=== PATIENT | female | born 1995 | race Caucasian/White ===

== ENCOUNTER → 2018-07-05 07:52 | Outpatient (CLI) | payer SELFPAY ==
[2018-07-05 14:06] LABS: Basophils % 0.7 % (0.1-2.0); Eosinophils # 0.1 K/mm3 (0.0-0.4); Eosinophils % 1.3 % (0.1-12.0); Hematocrit 47.3 % (37.0-47.0); Hemoglobin 16.1 g/dL (12.2-16.2); Lymphocytes % 35.2 % (10-50); Mean Corpuscular HGB Conc 34.1 g/dL (31.8-35.4); Mean Platelet Volume 7.8 fl (7.4-10.4); Monocytes # 0.6 K/mm3 (0.1-1.0); Monocytes % 10.6 % (1.7-9.3); Neutrophils # 2.9 K/mm3 (1.8-7.8); Neutrophils % 52.2 % (37.0-80.0); Platelet Count 238 K/mm3 (142-424); Red Cell Distribution Width 12.3 % (11.5-17.5); White Blood Count 5.6 K/mm3 (4.8-10.8)
[2018-07-05 15:58] LABS: Alanine Aminotransferase 25 U/L (12-78); Albumin Level 4.2 gm/dL (3.4-5.0); Albumin/Globulin Ratio 1.3 (1.1-1.8); Alkaline Phosphatase 77 U/L (46-116); Anion Gap 14.1 mEq/L (5-15); Aspartate Amino Transferase 13 U/L (15-37); Bilirubin,Total 0.5 mg/dL (0.2-1.0); Blood Urea Nitrogen 15 mg/dL (7-18); Calcium 9.2 mg/dL (8.5-10.1); Carbon Dioxide 29 mmol/L (21.0-32.0); Chloride 103 mmol/L (98-107); Creatinine,Serum 0.71 mg/dL (0.55-1.02); Estimated Glomerular Filt Rate 102 ml/min (>60); GFR (African American) 123 ML/MIN (>60); Globulin 3.3 gm/dl (1.3-3.2); Glucose 72 mg/dL (74-106); Iron 38 ug/dl (28-170); Potassium 4.1 mmoL/L (3.5-5.1); Sodium 142 mmol/L (136-145); T4 (Thyroxine) 8.8 ug/dl (4.7-13.3); Thyroid Stimulating Hormone 3.23 uIU/ml (0.358-3.740); Total Protein,Serum 7.5 gm/dL (6.4-8.2)
== END ==
PROVIDERS: PCP Nurse Practitioner Family; Visit Provider Nurse Practitioner Family
DX: R53.83 Other fatigue (principal); R53.81 Other malaise; E16.2 Hypoglycemia, unspecified
CPT/HCPCS: 36415; 80053; 83540; 84436; 84443; 85025

== ENCOUNTER → 2018-08-07 11:41 | Outpatient (CLI) | payer SELFPAY ==
[2018-08-07 14:46] LABS: Creatine Kinase 72 U/L (26-192); Creatine Kinase MB 1.9 ng/ml (0.0-3.6)
[2018-08-08 15:13] LABS: CK-MB 0 % (0-3); CK-MM 100 % (97-100); Creatine Kinase,Total,Serum 75 U/L (24-173); Macro Type 1 0 % (Not Observed); Macro Type 2 0 % (Not Observed)
[2018-08-09 18:29] LABS: CK-BB 0 % (0)
== END ==
PROVIDERS: PCP Nurse Practitioner Family; Visit Provider Nurse Practitioner Family
DX: M62.81 Muscle weakness (generalized) (principal)
CPT/HCPCS: 36415; 82550; 82552; 82553

== ENCOUNTER → 2022-02-15 14:56 | Outpatient (CLI) | payer SELFPAY ==
--- NOTE | 2022-02-15 15:00 | US_ITS ---
FINAL REPORT CLINICAL HISTORY: r/o left parotid growth FINDINGS: Ultrasound imaging of the neck soft tissues was obtained. The bilateral submandibular/parotid glands are within normal limits. There is no mass or fluid collection. An enlarged left submandibular lymph node is seen measuring up to 2.2 cm which is nonspecific and likely reactive. IMPRESSION: Enlarged left submandibular lymph node which is nonspecific but likely reactive. Reviewed, Interpreted and Dictated by Mushtaq Arechiga III, MD Transcribed by Shauna Boss Authenticated and [facility]
== END ==
PROVIDERS: Visit Provider Student in an Organized Health Care Education/Training Program
DX: M26.622 Arthralgia of left temporomandibular joint (principal)
CPT/HCPCS: 76536